=== PATIENT | female | born 1935 ===

== ENCOUNTER 2017-11-27 11:47 | Inpatient (IN) | payer MEDICARE ==
[2017-11-27 11:49] VITALS: BMI 29.2
[2017-11-27] MEDS ORDERED: Morphine 4 mg/ml ISec IVP STA (12:49)
[2017-11-27] MEDS ORDERED: Sodium Chloride 0.9% 1,000 ML IV STA (12:49)
[2017-11-27] MEDS ORDERED: Iohexol 240 (50 ml) ONE (13:02)
--- NOTE | 2017-11-27 13:39 | ED PDOC ---
Arrival/HPI - General Chief Complaint: Back Pain Time Seen by Provider: 11/27/17 12:16 Historian: Patient - History of Present Illness Narrative History of Present Illness (Text): 11/27/17 13:43 Corinne Negro is an 82 year old female, whose past medical history includes CAD with 1 cardiac stent and hypertension, who presents to the Emergency department complaining of aching lower back pain for past 2 days, which radiates upward all the way to neck, progressively worse since yesterday morning. Patient notes she was cleaning her house 2 days ago. Patient admits to constipation for 2 days and notes she has not passed gas in 2 days. Patient was able to ambulate when coming to Emergency department today. Patient denies taking any over the counter medicine. Patient notes she took prescribed Gabapentin, with no significant relief. Patient denies any fever, chills, falling, numbness/tingling in any other extremities, chest pain, shortness of breath, nausea, vomiting, diarrhea, urinary symptoms, blurred vision, headache, dizziness, or any other complaints. PMD: Dr. Eleuterio العلي Time/Duration: > week (started 2 days ago) Symptom Onset: Gradual Symptom Course: Unchanged Quality: Aching Activities at Onset: Other (was cleaning house 2 days ago) Context: Home Past Medical History - Provider Review Nursing Documentation Reviewed: Yes - Infectious Disease Hx of Infectious Diseases: None - Tetanus Immunization Tetanus Immunization: Unknown - Cardiac Hx Hypertension: Yes Other/Comment: coronary artery stent - Pulmonary Hx Respiratory Disorders: No - Neurological Other/Comment: [place] [employer] [place] 02[place]26[place]14 - HEENT Hx HEENT Disorder: No - Renal Hx Renal Disorder: No - Endocrine/Metabolic Hx Endocrine Disorders: No - Hematological/Oncological Hx Blood Disorders: No - Integumentary Other/Comment: cyst removed on left breast - Musculoskeletal/Rheumatological Hx Back Pain: Yes (02/09/13 ADM FOR R/O PNEUMONIA) Hx Falls: Yes - Gastrointestinal Hx Gall Bladder Disease: Yes (removed gall bladder) - Genitourinary/Gynecological Hx Genitourinary Disorders: No - Psychiatric Hx Depression: Yes Hx Emotional Abuse: No Hx Physical Abuse: No Hx Substance Use: No - Surgical History Hx Coronary Stent: Yes Hx Open Heart Surgery: Yes (@ [facility] 3 YRS AGO) - Anesthesia Hx Anesthesia: Yes Hx Anesthesia Reactions: No - Suicidal Assessment Feels Threatened In Home Enviroment: No Family/Social History - Physician Review Nursing Documentation Reviewed: Yes Family/Social History: Unknown Family HX Smoking Status: Never Smoked Hx Alcohol Use: No Hx Substance Use: No Allergies/Home Meds Allergies/Adverse Reactions: Allergies iv contrast Allergy (Severe, Uncoded 03/01/14 14:34) RASH Home Medications: Home Meds Medication Instructions Recorded Confirmed Aspirin [Ecotrin] 1 tab PO DAILY 11/27/17 11/27/17 Furosemide [Lasix] 1 tab PO DAILY 11/27/17 11/27/17 Gabapentin [Neurontin] 1 tab PO TID 11/27/17 11/27/17 Metoprolol Tartrate [Lopressor] 1 tab PO BID 11/27/17 11/27/17 amLODIPine [Norvasc] 1 tab PO DAILY 11/27/17 11/27/17 Review of Systems - Physician Review All systems were reviewed & negative as marked: Yes - Review of Systems Constitutional: Normal. absent: Fevers Eyes: Normal. absent: Vision Changes ENT: Normal Respiratory: Normal. absent: SOB, Cough Cardiovascular: Normal. absent: Chest Pain Gastrointestinal: Constipation (for past 2 days), Other (notes she has not passed gas in past 2 days). absent: Normal, Abdominal Pain, Diarrhea, Nausea, Vomiting Genitourinary Female: Normal Musculoskeletal: Back Pain (lower back pain radiating upward, all the way to neck), Neck Pain (lower back pain radiates to neck). absent: Normal Skin: Normal. absent: Rash, Pruritis, Skin Lesions, Laceration Neurological: Normal. absent: Headache, Dizziness, Gait Changes, Speech Changes Endocrine: Normal. absent: Diaphoresis Hemo/Lymphatic: Normal Psychiatric: Normal Physical Exam Vital Signs Reviewed: Yes Vital Signs Temp Pulse Resp BP Pulse Ox 11/27/17 16:23 98.3 F 88 20 140/90 95 11/27/17 14:28 98.4 F 79 18 130/84 95 11/27/17 11:54 98.5 F 86 18 121/82 96 Temperature: Afebrile Blood Pressure: Normal Pulse: Regular Respiratory Rate: Normal Appearance: Positive for: Well-Appearing, Non-Toxic, Comfortable Pain Distress: None Mental Status: Positive for: Alert and Oriented X 3 - Systems Exam Head: Present: Atraumatic, Normocephalic Pupils: Present: PERRL Extroacular Muscles: Present: EOMI Conjunctiva: Present: Normal Mouth: Present: Moist Mucous Membranes Neck: Present: Normal Range of Motion Respiratory/Chest: Present: Clear to Auscultation, Good Air Exchange. No: Respiratory Distress, Accessory Muscle Use Cardiovascular: Present: Regular Rate and Rhythm, Normal S1, S2. No: Murmurs Abdomen: No: Tenderness, Distention, Peritoneal Signs Back: Present: Normal Inspection. No: CVA Tenderness Upper Extremity: Present: Normal Inspection. No: Cyanosis, Edema Lower Extremity: Present: Normal Inspection. No: Edema Neurological: Present: GCS=15, CN II-XII Intact, Speech Normal Skin: Present: Warm, Dry, Normal Color. No: Rashes Psychiatric: Present: Alert, Oriented x 3, Normal Insight, Normal Concentration Medical Decision Making ED Course and Treatment: 11/27/17 12:25 Impression: Corinne Negro is an 82 year old female who presents to the Emergency department for lower back pain for past 2 days. Plan: -- Labs -- CT of A/P -- Colace -- Morphine -- IV fluids -- Zofran -- Urine culture -- Urinalysis -- Reassess and disposition Progress Notes: 10/27/2017 16:20 Abd/Pelvis CT IMPRESSION: Left adrenal mass unchanged. No acute intra-abdominal findings. Dictator: Davon Hernandez MD 11/27/17 16:[address] العلي, who agrees to have patient admitted for observation. - Lab Interpretations Lab Results: 11/27/17 13:00 11/27/17 13:00 Lab Results 11/27/17 14:50: Urine Color Yellow, Urine Appearance Clear, Urine pH 6.0, Ur Specific [place] 1.025, Urine Protein Trace H, Urine Glucose (UA) Negative, Urine Ketones Negative, Urine Blood Negative, Urine Nitrate Negative, Urine Bilirubin Negative, Urine Urobilinogen 0.2, Ur Leukocyte Esterase Small H, Urine RBC 0 - 2, Urine WBC 10 - 15, Ur Epithelial Cells 4 - 5, Urine Bacteria Mod 11/27/17 13:00: Sodium 144, Potassium 4.2, Chloride 102, Carbon Dioxide 31, Anion Gap 16, BUN 20, Creatinine 1.1, Est GFR ( Amer) 58, Est GFR (Non- Af Amer) 48, Random Glucose 102, Calcium 9.7, Total Bilirubin 0.7, AST 39 H, ALT 25, Alkaline Phosphatase 75, Total Protein 8.0, Albumin 4.6, Globulin 3.4, Albumin/Globulin Ratio 1.3, Lipase 275 11/27/17 13:00: PT 11.5, INR 1.01 11/27/17 13:00: WBC 10.7 D, RBC 4.38, Hgb 13.0, Hct 39.2, MCV 89.5, MCH 29.7, MCHC 33.2, RDW 14.4, Plt Count 238, MPV 9.5, Gran % 87.0 H, Lymph % (Auto) 4.1 L , [place] % (Auto) 7.6 H, Eos % (Auto) 1.0 L, Baso % (Auto) 0.3, Gran # 9.33 H, Lymph # (Auto) 0.4 L, [place] # (Auto) 0.8 H, Eos # (Auto) 0.1, Baso # (Auto) 0.03 , Neutrophils % (Manual) 87 H, Lymphocytes % (Manual) 3 L, Monocytes % (Manual) 9 H, Eosinophils % (Manual) 1, Platelet Evaluation Normal - RAD Interpretation Radiology Orders: 11/27/17 12:47 ABD PELVIS PO & IV CONTRAST [CT] Stat - Medication Orders Current Medication Orders: Ceftriaxone Sodium (Rocephin 2 Gm Ivpb) 2 gm in 100 mls @ 100 mls/hr IVPB STAT STA PRN Reason: Protocol Stop: 11/27/17 17:24 Last Admin: 11/27/17 16:46 Dose: 100 mls/hr eMAR Start Stop Document 11/27/17 16:46 LA (Rec: 11/27/17 16:47 LA [id number]) Intravenous Solution Start Date 11/27/17 Start Time 16:46 End Date 11/27/17 End time 17:46 Total Infusion Time 60 Discontinued Medications Docusate Sodium (Colace) 100 mg PO STAT STA Stop: 11/27/17 12:50 Last Admin: 11/27/17 13:09 Dose: 100 mg Last Bowel Movement Document 11/27/17 13:09 LA (Rec: 11/27/17 13:10 LA [id number]) Last Bowel Movement Last Bowel Movement 11/25/17 Sodium Chloride (Sodium Chloride 0.9%) 1,000 mls @ 999 mls/hr IV .Q1H1M STA Stop: 11/27/17 13:49 Last Admin: 11/27/17 13:25 Dose: 999 mls/hr eMAR Start Stop Document 11/27/17 13:25 LA (Rec: 11/27/17 13:25 LA [id number]) Intravenous Solution Start Date 11/27/17 Start Time 13:25 End Date 11/27/17 End time 14:26 Total Infusion Time 61 Morphine Sulfate (Morphine) 4 mg IVP STAT STA Stop: 11/27/17 12:50 Last Admin: 11/27/17 13:08 Dose: 4 mg MAR Pain Assessment Document 11/27/17 13:08 LA (Rec: 11/27/17 13:08 LA [id number]) Pain Reassessment Is this a pain reassessment? No Sleep Is patient sleeping during reassessment? No Presence of Pain Presence of Pain Yes Pain Scale Used Pain Scale Used Numeric Location Upper or Lower Lower Pain Location Body Site Back Description Description Constant Intensity of Pain at present 10 IVP Administration Document 11/27/17 13:08 LA (Rec: 11/27/17 13:08 LA [id number]) Charges for Administration # of IVP Administrations 1 Re-Assess: MAR Pain Assessment Document 11/27/17 14:08 LA (Rec: 11/27/17 14:35 LA [id number]) Pain Reassessment Is this a pain reassessment? Yes Sleep Is patient sleeping during reassessment? No Presence of Pain Presence of Pain Yes Pain Scale Used Pain Scale Used Numeric Location Upper or Lower Lower Pain Location Body Site Back Description Description Intermittent Intensity of Pain at present 7 Pain Behavior Guarding Ondansetron HCl (Zofran Inj) 4 mg IVP STAT STA Stop: 11/27/17 12:50 Last Admin: 11/27/17 13:09 Dose: 4 mg IVP Administration Document 11/27/17 13:09 LA (Rec: 11/27/17 13:09 LA [id number]) Charges for Administration # of IVP Administrations 1 - Scribe Statement The provider has reviewed the documentation as recorded by the Scriblebron Mayorga All medical record entries made by the Scribe were at my direction and personally dictated by me. I have reviewed the chart and agree that the record accurately reflects my personal performance of the history, physical exam, medical decision making, and the department course for this patient. I have also personally directed, reviewed, and agree with the discharge instructions and disposition. Disposition/Present on Arrival - Present on Arrival Any Indicators Present on Arrival: No History of DVT/PE: No History of Uncontrolled Diabetes: No Urinary Catheter: No History of Decub. Ulcer: No History Surgical Site Infection Following: None - Disposition Have Diagnosis and Disposition been Completed?: Yes Diagnosis: Back pain, Pyelonephritis Disposition: HOSPITALIZED Disposition Time: 16:53 Patient Plan: Observation (Med/Surg), Other Patient Problems: Current Active Problems Problem Status Onset Back pain Acute Pyelonephritis Acute Condition: GOOD Referrals: Honey العلي MD [Primary Care Provider] - Follow up with primary Forms: [employer] (Dutch)
[2017-11-27 13:42] LABS: BASO # 0.03 K/mm3 (0.0-2.0); BASO % 0.3 % (0.0-3.0); EOS # 0.1 (0.0-0.7); GRAN # 9.33 (1.4-6.5); LYMPH # 0.4 (1.2-3.4); LYMPH % 4.1 % (22.0-35.0); MEAN CELL VOLUME 89.5 fl (80.0-105.0); MEAN CORPUSCULAR HEMOGLOBIN 29.7 pg (25.0-35.0); MEAN CORPUSCULAR HGB CONC 33.2 g/dl (31.0-37.0); MEAN PLATELET VOLUME 9.5 fl (7.0-11.0); MONO # 0.8 (0.1-0.6); MONO % 7.6 % (1.0-6.0); PLATELET COUNT 238 10^3/uL (120.0-450.0); RBC 4.38 10^6/uL (3.5-6.1); RED CELL DISTRIBUTION WIDTH 14.4 % (11.5-14.5); WHITE BLOOD COUNT 10.7 10^3/ul (4.5-11.0)
[2017-11-27 13:47] LABS: INR 1.01; PROTHROMBIN TIME 11.5 SECONDS (9.4-12.5)
[2017-11-27 14:02] LABS: EOSINOPHIL 1 % (0.0-3.0); LYMPHOCYTE 3 % (22.0-35.0); MONOCYTE 9 % (1.0-6.0); NEUTROPHIL 87 % (50.0-70.0); PLATELET ESTIMATE NORMAL (NORMAL)
[2017-11-27 14:06] LABS: ALB/GLOB RATIO 1.3 (1.1-1.8); ALBUMIN 4.6 g/dL (3.0-4.8); CALCIUM 9.7 mg/dL (8.4-10.5)
[2017-11-27] MEDS ORDERED: Iohexol 350 MG/100 ML VIAL ONE (14:29)
[2017-11-27 15:03] LABS: URINE BILIRUBIN NEGATIVE (NEGATIVE); URINE BLOOD NEGATIVE (NEGATIVE); URINE GLUCOSE (UA) NEGATIVE (NEGATIVE); URINE LEUKOCYTE ESTERASE SMALL Leu/uL (NEGATIVE); URINE PROTEIN TRACE mg/dL (<30 mg/dL); URINE UROBILINOGEN 0.2 E.U./dL (<1 E.U./dL)
[2017-11-27 15:10] LABS: URINE APPEARANCE CLEAR (CLEAR); URINE COLOR YELLOW (YELLOW)
[2017-11-27 15:11] LABS: URINE BACTERIA MOD (NEG); URINE RBC 0 - 2 /hpf (0-2)
--- NOTE | 2017-11-27 16:22 | CT ---
Date of service: 11/27/2017 PROCEDURE: CT Abdomen and Pelvis with contrast HISTORY: Possible Bowel Obstruction COMPARISON: 07/14/2016 TECHNIQUE: Contrast dose: 100 cc of Omni 350 Radiation dose: Total exam DLP = 914 mGy-cm. This CT exam was performed using one or more of the following dose reduction techniques: Automated exposure control, adjustment of the mA and/or kV according to patient size, and/or use of iterative reconstruction technique. FINDINGS: LOWER THORAX: Unremarkable. LIVER: Unremarkable. No gross lesion or ductal dilatation. GALLBLADDER AND BILE DUCTS: The common duct is dilated measuring 15 mm. There is no obstructing mass or stone visualized. The finding is unchanged. Previous cholecystectomy PANCREAS: Unremarkable. No gross lesion or ductal dilatation. SPLEEN: Unremarkable. ADRENALS: There is a left adrenal mass measuring 32 x 35 mm. This is unchanged KIDNEYS AND URETERS: Unremarkable. No hydronephrosis. No solid mass. VASCULATURE: Unremarkable. No aortic aneurysm. BOWEL: Unremarkable. No obstruction. No gross mural thickening. APPENDIX: Normal appendix. PERITONEUM: Unremarkable. No free fluid. No free air. LYMPH NODES: Unremarkable. No enlarged lymph nodes. BLADDER: Unremarkable. REPRODUCTIVE: Unremarkable. BONES: No acute fracture. OTHER FINDINGS: None. IMPRESSION: Left adrenal mass unchanged. No acute intra-abdominal findings
[2017-11-27] MEDS ORDERED: cefTRIAXone 2 GM IN NS 2 GM/100 ML BAG IVPB STA (16:25)
[2017-11-27] MEDS ORDERED: Pneumococcal 23-Valent Vaccine IM ONE (21:16)
--- NOTE | 2017-11-28 06:57 | HP ---
Copied To: Honey العلي MD Attending MD: Honey العلي MD. DATE OF EXAM: 11/27/2017 CHIEF COMPLAINT: Back pain. HISTORY OF PRESENT ILLNESS: Ms. Corinne Negro is an [id number] female with past medical history of coronary artery disease with cardiac stenting, hypertension, repeated UTI came to the emergency room complaining of back pain for the past 2 days which radiates upward all the way to the neck, progressively worse since yesterday morning. Patient noticed she was cleaning her house 2 days ago. Patient admits constipation for 2 days and noticed that she has not passed gas in 2 days. The patient was able to ambulate when coming to the Emergency Department. Patient denies taking any [id number] medications. Patient noticed she took prescribed gabapentin with no significant relief. No fever, no chills. No history of fall, numbness, tingling sensation, chest pain, shortness of breath. No nausea or vomiting or diarrhea. No headache, no dizziness. PAST MEDICAL HISTORY: Hypertension, history of syncopal attack, before cardiac surgery, cyst removed from the left breast, history of pneumonia, history of cholecystectomy, depression, coronary stents, open heart surgery in [facility] 3 years ago for valvular lesion. FAMILY HISTORY: Father and mother, noncontributory. HABITS: Never smoked. No drugs, no ethanol. ALLERGIES: PATIENT IS ALLERGIC WITH IV CONTRAST. HOME MEDICATIONS: Ecotrin, Lasix, Neurontin, Lopressor, Lovenox. REVIEW OF SYSTEMS: Patient was seen and examined at the bedside in the emergency room. Son was sitting on the bedside also. No fever, no chills, no vision changes. No shortness of breath, cough or chest pain. No hematuria, hematochezia. Patient has history of constipation. Has not passed the gas in past 2 days. Back pain of lower back radiating up all the way to the neck. No skin lesions, laceration, or dizziness. PHYSICAL EXAMINATION: VITAL SIGNS: Temperature 98.3, pulse 88, respiratory rate 20, blood pressure 140/90, pulse oxymetry 95. HEENT: Head normocephalic, atraumatic. Eyes PERRLA. Extraocular muscles intact. Conjunctivae clear. Nose patent. Mucous membranes moist. NECK: Supple. No carotid bruits or thyromegaly. CHEST: Bilateral symmetrical. HEART: S1, S2 positive. LUNGS: Clear to auscultation. ABDOMEN: Soft. Bowel sounds positive. No organomegaly. EXTREMITIES: No edema, no cyanosis. NEUROLOGIC: Patient is awake and alert. Moving all 4 extremities. No focal deficits. LABORATORY DATA: White blood cell 10.7, hemoglobin 13.0, hematocrit 39.2, platelet 238. Sodium 145, potassium 4.2, BUN 20, creatinine 1.1, glucose 102. ASSESSMENT AND PLAN: Ms. Corinne Negro is an 82-year-old female with back pain, pyelonephritis, history of coronary artery disease with cardiac stents, open heart surgery in [place], hypertension. CAT scan of abdomen and pelvis done showed left adrenal mass unchanged, no acute intraabdominal findings. We admitted the patient. Called ID consult to rule out sepsis. Patient has history of constipation, docusate given in the emergency room, started on aspirin, Lasix, metoprolol. Morphine given in the emergency room. Amlodipine, Pepcid, ceftriaxone given. Gastrointestinal and deep venous thrombosis prophylaxis given. Urinalysis shows trace proteinuria and urinary tract infection. Culture and sensitivity done. Results are pending. Length of time discussion done with patient's son. He is on the bedside. Gastrointestinal prophylaxis, deep venous thrombosis prophylaxis. Repeat labs. Will follow up. Honey العلي MD DWAYNE
[2017-11-28 07:05] LABS: MEAN CELL VOLUME 89.1 fl (80.0-105.0); MEAN CORPUSCULAR HEMOGLOBIN 29.2 pg (25.0-35.0); MEAN CORPUSCULAR HGB CONC 32.8 g/dl (31.0-37.0); MEAN PLATELET VOLUME 9.2 fl (7.0-11.0); RBC 4.11 10^6/uL (3.5-6.1); RED CELL DISTRIBUTION WIDTH 14.6 % (11.5-14.5); WHITE BLOOD COUNT 8.8 10^3/ul (4.5-11.0)
[2017-11-28 07:12] LABS: BLOOD UREA NITROGEN 16 mg/dL (7-21); CALCIUM 8.7 mg/dL (8.4-10.5); GFR AFRICAN-AMERICAN > 60; GFR NON-AFRICAN AMERICAN 53; HDL CHOLESTEROL 44 mg/dL (29-60)
[2017-11-28 07:13] LABS: IRON 91 ug/dL (45-180)
[2017-11-28 07:22] LABS: % IRON SATURATION 26 % (20-55); TOTAL IRON BINDING CAPACITY 352 ug/dL (265-497)
[2017-11-28 07:23] LABS: LDL CHOLESTEROL 76 mg/dL (0-129)
[2017-11-28] MEDS: cefTRIAXone 1 gm 1 GM/100 ML BAG IVPB SCH (09:54)
[2017-11-28 13:04] LABS: FOLATE 6.4 ng/mL
--- NOTE | 2017-11-28 13:05 | CP.PCM.CON ---
<Nelson Garcia - Last Filed: 11/28/17 13:30> History of Present Illness - History of Present Illness History of Present Illness: PGY6 GI Fellow Consult Note Patient is an 82yo female with PMHx significant for CAD s/P PCI, HTN who presented to the hospital with severe intractable back pain for the last two days. Symptoms began suddenly upon waking two days ago. She denies any recent heavy lifting but had been cleaning her house prior to onset. Our service was consulted for abdominal pain. Patient states she has been constipated for the last 2-3 days but otherwise denies any specific GI complaints. Currently denies any dysphagia, odynophagia, abdominal pain, nausea, vomiting, weight loss, change in bowel habits, rectal bleeding. 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 The patient was instructed to follow up for repeat EGD but did not do so. 12 system ROS performed and negative except where stated PMHx: See HPI PSHx: Cholecystectomy, PCI FHx: Discussed with patient and she denies any significant family history Social: Denies tobacco, EtOH or illicit drug use Endo: EGD/EUS - June 2016 as described above; Colonoscopy in 2013 with tubular adenoma/hyperplastic polyps per path report (no endo report available in EMR) Past Patient History - Infectious Disease Hx of Infectious Diseases: None - Tetanus Immunizations Tetanus Immunization: Unknown - Past Social History Smoking Status: Never Smoked - CARDIAC Hx Cardiac Disorders: Yes Hx Hypertension: Yes Other/Comment: coronary artery stent X1 - PULMONARY Hx Respiratory Disorders: No - NEUROLOGICAL Hx Neurological Disorder: Yes Other/Comment: [facility]ed [place] [employer] [place] 02[place]26[place]14 - HEENT Hx HEENT Problems: Yes (WEARS RX GLASSES) - RENAL Hx Chronic Kidney Disease: No - ENDOCRINE/METABOLIC Hx Endocrine Disorders: No - HEMATOLOGICAL/ONCOLOGICAL Hx Blood Disorders: No - INTEGUMENTARY Hx Dermatological Problems: Yes Other/Comment: cyst removed on left breast - MUSCULOSKELETAL/RHEUMATOLOGICAL Hx Musculoskeletal Disorders: Yes Hx Back Pain: Yes (02/09/13 ADM FOR R/O PNEUMONIA) Hx Falls: Yes - GASTROINTESTINAL Hx Gastrointestinal Disorders: Yes (PANCREATITIS) Hx Gall Bladder Disease: Yes (CHOLECYSTECTOMY) Hx Pancreatitis: Yes - GENITOURINARY/GYNECOLOGICAL Hx Genitourinary Disorders: Yes Hx Urinary Tract Infection: Yes - PSYCHIATRIC Hx Psychophysiologic Disorder: Yes Hx Depression: Yes Hx Emotional Abuse: No Hx Physical Abuse: No Hx Substance Use: No - SURGICAL HISTORY Hx Surgeries: Yes (HEART STENT X 1) Hx Coronary Stent: Yes Hx Open Heart Surgery: Yes (@ [facility] 3 YRS AGO) - ANESTHESIA Hx Anesthesia: Yes Hx Anesthesia Reactions: No Meds Allergies/Adverse Reactions: Allergies Allergy/AdvReac Type Severity Reaction Status Date / Time iv contrast Allergy Severe RASH Uncoded 11/27/17 20:01 - Medications Medications: Current Medications Acetaminophen (Tylenol 325mg Tab) 650 mg PO Q6H PRN PRN Reason: Pain, Mild (1-3) Last Admin: 11/28/17 07:50 Dose: 650 mg Amlodipine Besylate (Norvasc) 10 mg PO DAILY [facility] Last Admin: 11/28/17 09:53 Dose: 10 mg Aspirin (Ecotrin) 81 mg PO DAILY [facility] Last Admin: 11/28/17 09:52 Dose: 81 mg Famotidine (Pepcid) 20 mg PO DAILY [facility] Last Admin: 11/28/17 09:54 Dose: 20 mg Furosemide (Lasix) 20 mg PO DAILY [facility] Last Admin: 11/28/17 09:52 Dose: 20 mg Gabapentin (Neurontin) 300 mg PO TID [facility] PRN Reason: Protocol Last Admin: 11/28/17 09:53 Dose: 300 mg Ceftriaxone Sodium (Rocephin 1 Gram Ivpb) 1 gm in 100 mls @ 100 mls/hr IVPB DAILY [facility] PRN Reason: Protocol Last Admin: 11/28/17 09:54 Dose: 100 mls/hr Metoprolol Tartrate (Lopressor) 25 mg PO BID [facility] Last Admin: 11/28/17 09:53 Dose: 25 mg Physical Exam - Constitutional Appears: Non-toxic, No Acute Distress - Eye Exam Eye Exam: EOMI, PERRL - ENT Exam ENT Exam: Mucous Membranes Moist - Respiratory Exam Respiratory Exam: Clear to Auscultation Bilateral. absent: Rales, Rhonchi, Wheezes - Cardiovascular Exam Cardiovascular Exam: RRR, +S1, +S2 - GI/Abdominal Exam GI & Abdominal Exam: Normal Bowel Sounds, Organomegaly, Soft. absent: Distended , Firm, Guarding, Rigid, Tenderness - Extremities Exam Extremities exam: Positive for: normal inspection. Negative for: pedal edema - Neurological Exam Neurological exam: Alert, Oriented x3 - Psychiatric Exam Psychiatric exam: Normal Affect, Normal Mood - Skin Skin Exam: Dry, Warm Results - Vital Signs Recent Vital Signs: Last Vital Signs Temp 98.0 F 11/28/17 06:00 Pulse 68 11/28/17 09:53 Resp 20 11/28/17 06:00 BP 116/73 11/28/17 09:53 Pulse Ox 95 11/28/17 06:00 - Labs Result Diagrams: 11/28/17 06:30 11/28/17 06:30 Labs: Laboratory Results - last 24 hr 11/28/17 11/28/17 11/28/17 06:30 06:30 06:30 WBC 8.8 RBC 4.11 Hgb 12.0 Hct 36.6 MCV 89.1 MCH 29.2 MCHC 32.8 RDW 14.6 H Plt Count 233 MPV 9.2 ESR Sodium 143 Potassium 4.1 Chloride 103 Carbon Dioxide 32 Anion Gap 13 BUN 16 Creatinine 1.0 Est GFR ( Amer) > 60 Est GFR (Non-Af Amer) 53 Random Glucose 93 Calcium 8.7 Iron 91 TIBC 352 % Saturation 26 C-Reactive Protein Triglycerides 121 Cholesterol 153 LDL Cholesterol Direct 76 HDL Cholesterol 44 TSH 3rd Generation 11/28/17 11/28/17 11/28/17 06:30 07:00 07:00 WBC RBC Hgb Hct MCV MCH MCHC RDW Plt Count MPV ESR 67 H Sodium Potassium Chloride Carbon Dioxide Anion Gap BUN Creatinine Est GFR ( Amer) Est GFR (Non-Af Amer) Random Glucose Calcium Iron TIBC % Saturation C-Reactive Protein 32.30 H Triglycerides Cholesterol LDL Cholesterol Direct HDL Cholesterol TSH 3rd Generation 0.77 Assessment & Plan - Assessment and Plan (Free Text) Assessment: Patient is an 82yo female with PMHx significant for CAD s/P PCI, HTN who presented to the hospital with severe intractable back pain for the last two days -Acute back pain -H/O 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 -PUD -Dilated CBD s/p cholecystectomy and prior EUS performed Plan: -EUS report reviewed along with images; no further work up required presently -Given h/o PUD and squamous papilloma, patient would benefit from repeat EGD, timing to be determined -Miralax 17g PO QD-BID PRN for constipation -Encouraged to augment fiber/water in diet -Given prior history of colon polyps, could consider outpatient surveillance colonoscopy given relatively few co-morbid conditions - Date & Time Date: 11/28/17 Time: 07:30 <Rush Loomis V - Last Filed: 11/28/17 23:53> Meds - Medications Medications: Current Medications Acetaminophen (Tylenol 325mg Tab) 650 mg PO Q6H PRN PRN Reason: Pain, Mild (1-3) Last Admin: 11/28/17 07:50 Dose: 650 mg Amlodipine Besylate (Norvasc) 10 mg PO DAILY [facility] Last Admin: 11/28/17 09:53 Dose: 10 mg Aspirin (Ecotrin) 81 mg PO DAILY [facility] Last Admin: 11/28/17 09:52 Dose: 81 mg Famotidine (Pepcid) 20 mg PO DAILY [facility] Last Admin: 11/28/17 09:54 Dose: 20 mg Furosemide (Lasix) 20 mg PO DAILY [facility] Last Admin: 11/28/17 09:52 Dose: 20 mg Gabapentin (Neurontin) 300 mg PO TID [facility] PRN Reason: Protocol Last Admin: 11/28/17 17:10 Dose: 300 mg Ceftriaxone Sodium (Rocephin 1 Gram Ivpb) 1 gm in 100 mls @ 100 mls/hr IVPB DAILY [facility] PRN Reason: Protocol Last Admin: 11/28/17 09:54 Dose: 100 mls/hr Metoprolol Tartrate (Lopressor) 25 mg PO BID [facility] Last Admin: 11/28/17 17:09 Dose: 25 mg Results - Vital Signs Recent Vital Signs: Last Vital Signs Temp 97.9 F 11/28/17 16:22 Pulse 69 11/28/17 17:09 Resp 18 11/28/17 16:22 BP 108/70 11/28/17 17:09 Pulse Ox 94 L 11/28/17 16:22 - Labs Result Diagrams: 11/28/17 06:30 11/28/17 06:30 Labs: Laboratory Results - last 24 hr 11/28/17 11/28/17 11/28/17 06:30 06:30 06:30 WBC 8.8 RBC 4.11 Hgb 12.0 Hct 36.6 MCV 89.1 MCH 29.2 MCHC 32.8 RDW 14.6 H Plt Count 233 MPV 9.2 ESR Sodium 143 Potassium 4.1 Chloride 103 Carbon Dioxide 32 Anion Gap 13 BUN 16 Creatinine 1.0 Est GFR ( Amer) > 60 Est GFR (Non-Af Amer) 53 Random Glucose 93 Calcium 8.7 Iron 91 TIBC 352 % Saturation 26 C-Reactive Protein Triglycerides 121 Cholesterol 153 LDL Cholesterol Direct 76 HDL Cholesterol 44 Vitamin B12 397 Folate 6.4 TSH 3rd Generation 11/28/17 11/28/17 11/28/17 06:30 07:00 07:00 WBC RBC Hgb Hct MCV MCH MCHC RDW Plt Count MPV ESR 67 H Sodium Potassium Chloride Carbon Dioxide Anion Gap BUN Creatinine Est GFR ( Amer) Est GFR (Non-Af Amer) Random Glucose Calcium Iron TIBC % Saturation C-Reactive Protein 32.30 H Triglycerides Cholesterol LDL Cholesterol Direct HDL Cholesterol Vitamin B12 Folate TSH 3rd Generation 0.77 Attending/Attestation - Attestation I have personally seen and examined this patient.: Yes I have fully participated in the care of the patient.: Yes I have reviewed all pertinent clinical information: Yes Notes (Text): Associated This is an addendum to GI consult report dictated by the GI Fellow.The patient was seen and examined earlier. Medical records, lab studies , imagings were reviewed. Last 24 hours events reviewed. Agreed with the above treatment plan as outlined in GI Fellow 's notes with the addition of the following Patient complains of only backpain No complaints of abdominal pain now History of dilated CBD Left adrenal mass Esophageal papilloma Previous EUS evaluation . Patient also has gastric ulcers Continue PPI Would benefit from repeat endoscopy evaluation to document healing of the gasic ulcers and also to evaluate the esophageal polyp/papilloma 11/28/17 23:50
--- NOTE | 2017-11-28 17:41 | CON ---
Copied To: Ramsey Mckeon MD Attending MD: Ramsey Mckeon MD DATE: 11/28/2017 LOCATION: The patient is in [facility], bed 1. CHIEF COMPLAINT: Right-sided flank pain times several days. HISTORY OF PRESENT ILLNESS: This is an 82-year-old female with a history of hypertension, history of rectal bleeding in 2013, history of s colonoscopy, which showed a biopsy with a tubular adenoma and H. pylori associated chronic active gastritis. The patient had upper endoscopy and also had a mammogram in 2012, which was negative. She had a history of coronary artery disease, pancreatitis and depression, who is admitted now with right-sided flank pain. The patient denies any dysuria or frequency. No fevers. No chills. No chest pain or shortness of breath. No cough. No abdominal pain. No headaches or blurred vision. REVIEW OF SYSTEMS: Reveals a 12-point review of systems is performed. There has been no bright red blood per rectum. No melena, diarrhea. There is constipation. No dysuria or frequency. No hematuria. No headaches and no neck pain, no sore throat. Just a right flank pain. PAST MEDICAL HISTORY: Significant for hypertension, tubular adenoma, rectal bleeding in 2013, H. pylori associated chronic active gastritis, coronary artery disease, pancreatitis and depression. PAST SURGICAL HISTORY: Significant for upper endoscopy and colonoscopy with biopsy, mammogram and cardiac cath with stent placement, cholecystectomy and a coronary artery bypass graft. ALLERGIES: THE PATIENT IS ALLERGIC TO IV CONTRAST. MEDICATIONS AT HOME: Include the patient to be on Neurontin, aspirin, amlodipine, metoprolol and Lasix. PHYSICAL EXAMINATION: GENERAL: She is in bed, no acute distress. She is answering questions appropriately. VITAL SIGNS: Temperature of 98, blood pressure is 140/90, respiratory rate of 20, heart rate of 88. Examination of the oxygen is 95% saturating on room air. BMI is 29. HEENT: Examination of HEENT is unremarkable. NECK: Supple. LUNGS: Have decreased breath sounds. HEART: Normal S1, S2. ABDOMEN: Soft, nontender. LABORATORY DATA: Laboratory examination reveals the white count is 8.8, hemoglobin of 12, platelets of 233. Chemistries reveals a BUN of 16, creatinine of 1, AST is 39. The urinalysis with 10-15 wbc's, moderate bacteria. Review of the cultures and these have been from 2012, negative cultures. The patient had a CAT scan of the abdomen, which was read as negative. Dr. العلي's history and physical examination reviewed. ASSESSMENT AND PLAN: An 82-year-old female with history of hypertension, history of rectal bleed, has colonoscopy, a tubular adenoma by pathology, an upper endoscopy and a Helicobacter pylori associated chronic active gastritis, coronary artery disease, pancreatitis and depression. Presenting now with a right flank pain. No fevers, no chills. She is having constipation with negative CAT scan. #1 is right pyelonephritis. We will check on the blood cultures, urine cultures. Treat the patient empirically with ceftriaxone. MRI of the spine is also ordered. We will check on the results and we will make further recommendations. We will order a sedimentation rate and C-reactive protein. Ramsey Mckeon MD
--- NOTE | 2017-11-29 02:40 | PN ---
Copied To: Honey العلي MD Attending MD: Honey العلي MD DATE: 11/28/2017 SUBJECTIVE: The patient is 82 years old female. The patient was seen and examined on the bedside. Sister was seen on the bedside also. Still complaining about pain, but it is getting better. No nausea, vomiting or diarrhea. No melena, no hematuria, no fever, no chills. No constipation. No dysuria or frequency. No headache, no neck pain. Had just right flank pain and back pain. PHYSICAL EXAMINATION VITAL SIGNS: Temperature 98.6, blood pressure 140/90, respiratory rate 18, pulse oximetry 88, oxygen saturation 95%. HEENT: Head normocephalic, atraumatic. Eyes PERRLA. Extraocular muscles are intact. Conjunctivae clear. Nose patent. Mucous membranes are moist. NECK: Supple. No carotid bruit. No JVD or thyromegaly. CHEST: Bilaterally symmetrical. HEART: S1 and S2 positive. LUNGS: Clear to auscultation. ABDOMEN: Soft. Bowel sounds present. No organomegaly. EXTREMITIES: No edema. No cyanosis. NEUROLOGIC: Patient is awake and alert. Moving all 4 extremities. No focal deficit. MEDICATIONS: Ecotrin, Lasix, Lopressor, Neurontin, Pepcid, Tylenol, Rocephin. LABORATORY DATA: White blood cell 8.8, hemoglobin 12, hematocrit 36.6, platelets 233. Sodium 143, potassium 4.1, BUN 15, creatinine 1, calcium 8.7. C-reactive protein 32.3. ASSESSMENT AND PLAN: Ms. Corinne Negro is 82-year-old female with history of hypertension, history of rectal bleeding, has colonoscopy, a tubular adenoma by pathology, an upper endoscopy and Helicobacter pylori-associated chronic active gastritis, coronary artery disease, history of pancreatitis and depression, daily right flank pain. No fever, no chills. She is having constipation with negative CAT scan, right pyelonephritis. Blood culture and urine cultures are pending. The patient is on ceftriaxone. MRI spine is ordered. ESR and C-reactive protein ordered by Dr. Mckeon. History of open heart surgery in [place]. Right now, continue present treatment. Gastrointestinal and deep venous thrombosis prophylaxis. We will follow up. Honey العلي MD
--- NOTE | 2017-11-29 10:40 | MRI ---
Date of service: 11/29/2017 PROCEDURE: MR LUMBAR SPINE WITHOUT CONTRAST HISTORY: pain COMPARISON: None available. TECHNIQUE: Multiecho multiplanar sequences were performed through the lumbar spine without the use of intravenous contrast. FINDINGS: Normal lumbar lordosis. Vertebral body heights are preserved. Marrow signal unremarkable. Conus medullaris unremarkable at the level of T12 Paraspinal soft tissues are unremarkable. T12-L1: No disc herniation, spinal canal stenosis or neural foraminal narrowing. L1-2: No disc herniation, spinal canal stenosis or neural foraminal narrowing. L2-3: No disc herniation, spinal canal stenosis or neural foraminal narrowing. L3-4: No disc herniation, spinal canal stenosis or neural foraminal narrowing. L4-5: There is severe facet arthropathy with 8 mm of anterior subluxation of L4. There is disc bulging with moderate to severe central stenosis and mild bilateral foraminal stenosis L5-S1: No disc herniation, spinal canal stenosis or neural foraminal narrowing. OTHER FINDINGS: None. IMPRESSION: There is severe facet arthropathy with 8 mm of anterior subluxation of L4. There is disc bulging with moderate to severe central stenosis and mild bilateral foraminal stenosis
[2017-11-29] MEDS: cefTRIAXone 1 gm 1 GM/100 ML BAG IVPB SCH (10:44)
--- NOTE | 2017-11-29 12:16 | MRI ---
Date of service: 11/29/2017 PROCEDURE: MR THORACIC SPINE WITHOUT CONTRAST HISTORY: pain COMPARISON: 06/21/2015 TECHNIQUE: Multiecho multiplanar sequences were performed through the thoracic spine without the use of intravenous contrast. FINDINGS: ALIGNMENT: Normal thoracic spinal alignment. Normal thoracic kyphosis. VERTEBRA: Vertebral body height are preserved. MARROW: Marrow signal unremarkable. PARASPINAL SOFT TISSUES: Unremarkable. CORD: Unremarkable thoracic cord. No volume loss, signal abnormality or syrinx. DISCS: No disc herniation, spinal canal stenosis, or neuroforaminal narrowing. OTHER FINDINGS: None. IMPRESSION: Unremarkable non-contrast enhanced MRI of the thoracic spine
--- NOTE | 2017-11-29 15:45 | PN ---
Copied To: Ramsey Mckeon MD Attending MD: Ramsey Mckeon MD DATE: 11/29/2017 SUBJECTIVE: The patient is in bed, in no acute distress, nontoxic. OBJECTIVE: VITAL SIGNS: On exam, temperature is 97, blood pressure is 117/80, respiratory rate of 20, heart rate of 70. HEENT: Examination is unremarkable. NECK: Supple. LUNGS: Have decreased breath sounds. HEART: Normal S1, S2. ABDOMEN: Soft, nontender. DATA: Laboratory examination reveals a white count of 10,000, hemoglobin of 13, platelets of 238. Chemistries are noted. BUN of 20, creatinine of 1.1 and the urinalysis is noted. Microbiology reveals the Staphylococcus saprophyticus in the urine. The blood cultures, there are no growth. Review of order reveals the patient is on ceftriaxone. The patient is scheduled for MRI of the spine. Dr. العلي's note from yesterday is reviewed. The patient had a thoracic spine MRI, the results are not available and the patient did have a lumbar spine MRI. There is a severe facet arthropathy at 8 mm of anterior subluxation of L4 and there is disk bulging, [id number] central stenosis, bilateral foramen stenosis. ASSESSMENT AND PLAN: This is an 82-year-old female with hypertension; history of rectal bleeding; had colonoscopy, found to have to tubular adenoma by pathology; also, had upper endoscopy in the past with Helicobacter pylori associated chronic active gastritis, also with coronary artery disease, pancreatitis and depression. The patient is admitted with: 1. Right pyelonephritis. So far, the blood cultures are negative and the urine culture revealed the patient had staphylococcus saprophyticus, generally associated with young sexually active women urinary tract infection. However, it is laguerre-colored urinary tract infection, is sensitive to Cipro, sensitive to Levaquin and resistant to oxacillin and blood cultures are reported to be negative. Review of the patient's EKG from 2017 reveals a QTc of 483. She is also sensitive to tetracycline and vancomycin. The patient send to home with Neurontin, Lopressor and Lasix. CAT scan of the abdomen and pelvis, has left adrenal mass, no acute intra-abdominal findings and that was with p.o. and IV contrast. We will discontinue ceftriaxone use and Zyvox, would use 7 to 10 days Zyvox. Ramsey Mckeon MD [facility] # [id number]
[2017-11-29 16:50] VITALS: RESP 20
--- NOTE | 2017-11-29 22:20 | PN ---
Copied To: Honey العلي MD Attending MD: Honey العلي MD DATE: 11/29/2017 SUBJECTIVE: The patient is an 82-year-old female. The patient was seen and examined at the bedside. Looking comfortable. Pain is better. Just came back for scans of her back. No fever, no chills. No nausea, vomiting, or diarrhea. No hematuria or hematochezia. No swelling of the legs. No headache. No dizziness. PHYSICAL EXAMINATION: VITAL SIGNS: Temperature 97.2, blood pressure 117/80, respiratory rate 20, heart rate 70. HEENT: Head normocephalic, atraumatic. Eyes: PERRLA. Extraocular muscles are intact. Conjunctivae clear. Nose patent. Mucous membranes moist. NECK: Supple. No carotid bruit, JVD, or thyromegaly. CHEST: Bilaterally symmetrical. HEART: S1 and S2 positive. LUNGS: Clear to auscultation. ABDOMEN: Soft. Bowel sounds present. No organomegaly. EXTREMITIES: No edema. No cyanosis. NEUROLOGIC: The patient is awake and alert. Moving all 4 extremities. No focal deficits. MEDICATIONS: Ecotrin, Lasix, Lopressor, Neurontin, Norvasc, Pepcid, Tylenol, and Zyvox. LABORATORY DATA: White blood cells 8.8, hemoglobin 12, hematocrit 36.6, platelets 233. ESR 67. C-reactive protein is 32.3. ASSESSMENT AND PLAN: Ms. Corinne Negro is an 82-year-old female who looks like has systemic inflammatory response syndrome, abnormal liver function test. C-reactive protein is very high. Seen by Dr. Mckeon, Infectious Disease. History of coronary artery disease, open-heart surgery; hypertension; hypercholesterolemia; degenerative joint disease; history of rectal bleeding in the past, had colonoscopy, has tubular adenoma by pathology, had upper endoscopy shows Helicobacter pylori positive, chronic on active gastritis; also coronary artery disease; pancreatitis; and depression. The patient is admitted with right pyelonephritis. So far, the blood cultures are negatively and urine cultures revealed the patient has Staphylococcus saprophyticus, generally associated with young sexually active women; urinary tract infection; however, it is not colored urinary tract infection, is sensitive to Cipro, sensitive to Levaquin, and resistant to oxacillin. Blood cultures are reported to be negative. The patient is sensitive to tetracycline and vancomycin. The patient home meds ,Lasix and Lopressor, we will continue that. MRI of the back done. I reviewed thoracic MRI and lumbar spine MRI. Thoracic is within normal limits. Lumbar spine showed facet arthropathy with 8 mm anterior subluxation of L4. There is disk bulging with [id number] central stenosis and mild bilateral foraminal stenosis. Pain is a little bit better. We will call neurosurgery consult. Gastric and deep venous thrombosis prophylaxes. Antibiotics as per Infectious Disease. We will follow up. Honey العلي MD MTDD
[2017-11-30] MEDS ORDERED: HYDROmorphone 0.5 mg/0.5 ml ISec IVP PRN (06:56)
--- NOTE | 2017-11-30 08:31 | CP.PCM.PN ---
<Rosalva Smallwood - Last Filed: 11/30/17 08:32> Subjective - Date & Time of Evaluation Date of Evaluation: 11/30/17 Time of Evaluation: 08:00 - Subjective Subjective: GI Fellow PGY5 Progress Note Pt seen and evaluated at bedside, pt with no complaints, reports abdominal pain is resolved. ROS: A 12pt ROS was negative except as above Objective - Vital Signs/Intake and Output Vital Signs (last 24 hours): Temp Pulse Resp BP Pulse Ox 99.2 F 74 20 110/68 97 11/29/17 16:50 11/29/17 16:50 11/29/17 16:50 11/29/17 16:50 11/29/17 16:50 - Medications Medications: Current Medications Amlodipine Besylate (Norvasc) 10 mg PO DAILY [facility] Last Admin: 11/29/17 10:43 Dose: 10 mg Aspirin (Ecotrin) 81 mg PO DAILY [facility] Last Admin: 11/29/17 10:39 Dose: 81 mg Famotidine (Pepcid) 20 mg PO DAILY [facility] Last Admin: 11/29/17 10:44 Dose: 20 mg Furosemide (Lasix) 20 mg PO DAILY [facility] Last Admin: 11/29/17 10:40 Dose: 20 mg Gabapentin (Neurontin) 600 mg PO TID [facility] PRN Reason: Protocol Last Admin: 11/29/17 17:29 Dose: 600 mg Hydromorphone HCl (Dilaudid) 0.25 mg IVP Q6H PRN PRN Reason: Pain, Mild (1-3) Lidocaine (Lidoderm) 1 ea TOP DAILY [facility] Linezolid (Zyvox) 600 mg PO BID [facility] PRN Reason: Protocol Stop: 12/09/17 11:46 Last Admin: 11/29/17 17:30 Dose: 600 mg Metoprolol Tartrate (Lopressor) 25 mg PO BID [facility] Last Admin: 11/29/17 17:29 Dose: 25 mg - Labs Labs: 11/28/17 06:30 11/28/17 06:30 PT 11.5 SECONDS (9.4-12.5) 11/27/17 13:00 INR 1.01 11/27/17 13:00 - Constitutional Appears: Non-toxic, No Acute Distress - Head Exam Head Exam: ATRAUMATIC, NORMAL INSPECTION, NORMOCEPHALIC - Eye Exam Eye Exam: EOMI, Normal appearance, PERRL Pupil Exam: PERRL - ENT Exam ENT Exam: Mucous Membranes Moist, Normal Exam - Neck Exam Neck Exam: Full ROM, Normal Inspection - Respiratory Exam Respiratory Exam: Clear to Ausculation Bilateral, NORMAL BREATHING PATTERN - Cardiovascular Exam Cardiovascular Exam: REGULAR RHYTHM, RRR, +S1, +S2 - GI/Abdominal Exam GI & Abdominal Exam: Soft, Normal Bowel Sounds. absent: Distended, Guarding, Tenderness - Rectal Exam Rectal Exam: Deferred - Extremities Exam Extremities Exam: Full ROM, Normal Inspection - Back Exam Back Exam: NORMAL INSPECTION - Neurological Exam Neurological Exam: Alert, Awake, Oriented x3 - Psychiatric Exam Psychiatric exam: Normal Affect, Normal Mood - Skin Skin Exam: Dry, Intact, Normal Color, Warm Assessment and Plan - Assessment and Plan (Free Text) Assessment: Patient is an 82yo female with PMHx significant for CAD s/P PCI, HTN who presented to the hospital with severe intractable back pain for the last two days 1. Acute back pain 2. 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 PUD 4. Dilated CBD s/p cholecystectomy and prior EUS performed Plan: -Continue supportive care and pain control -Pt clinically improved with no abdominal pain, back pain is better -EUS report reviewed no further work up required presently -Given h/o PUD and squamous papilloma, patient would benefit from repeat EGD to f/u on ulcer healing, timing to be determined -Miralax 17g PO QD-BID PRN for constipation -Encouraged to augment fiber/water in diet -Given prior history of colon polyps, could consider outpatient surveillance colonoscopy -Will continue to follow closely <Rush Loomis V - Last Filed: 11/30/17 19:38> Objective - Vital Signs/Intake and Output Vital Signs (last 24 hours): Temp Pulse Resp BP Pulse Ox 97.9 F 65 20 97/66 L 95 11/30/17 08:55 11/30/17 08:55 11/30/17 08:55 11/30/17 10:38 11/30/17 08:55 - Labs Labs: PT 11.5 SECONDS (9.4-12.5) 11/27/17 13:00 INR 1.01 11/27/17 13:00 Attending/Attestation - Attestation I have personally seen and examined this patient.: Yes I have fully participated in the care of the patient.: Yes I have reviewed all pertinent clinical information, including history, physical exam and plan: Yes Notes (Text): This is an addendum to GI progress report dictated by the GI Fellow.The patient was seen and examined earlier. Medical records, lab studies, imagings were reviewed. Last 24 hours events reviewed. Agreed with the above treatment plan as outlined in GI Fellow 's notes with the addition of the following Discussed with The patient would need a repeat endoscopy to evaluate gastric ulcer and also squamous papilloma Would schedule the patient for outpatient EGD 11/30/17 19:38
[2017-11-30 08:56] VITALS: BP 97/66; PULSE 65; TEMP 97.9; O2SAT 95
[2017-11-30] MEDS ORDERED: Lidocaine 5% Patch TOP SCH (10:00)
--- NOTE | 2017-11-30 12:17 | CON ---
Copied To: Bridger Hanley MD Attending MD: Bridger Hanley MD DATE: 11/30/2017 REASON FOR CONSULTATION: Low back pain. HISTORY OF PRESENT ILLNESS: The patient is an 82-year-old young lady, who states that 5 days ago, she noted the onset of severe lower back pain, which radiated up her back towards her neck. Denies any fevers or chills. She states that prior to this, she has no significant complaints of back pain. No limitations with her ambulation. She cleans her house and does her shopping and walking without any difficulties. No disturbance of bowel or bladder control. She was admitted to the hospital on 11/27/2017. She states her pain is markedly better now and she has no real complaints of back pain at this time. PAST MEDICAL HISTORY: Significant for hypertension. She has a history of coronary artery disease with stenting. She had a cyst removed from the left breast. She had some open heart surgery in [facility] 3 years ago for a valvular lesion. PAST SURGICAL HISTORY: Significant for the open heart surgery as well as the cholecystectomy and as I mentioned, the left breast cystectomy. MEDICATIONS: As listed on the chart. ALLERGIES: SHE IS ALLERGIC TO IV CONTRAST REPORTEDLY. PHYSICAL EXAMINATION: NEUROLOGIC: She has no real tenderness to palpation across the lumbar spine. She has no straight leg raising noted. She moves both extremities actively. Sensory is intact to light touch throughout. She has excellent motor strength. No clonus or Babinski's noted. LABORATORY DATA: MRI was reviewed and it shows a grade I-II spondylolisthesis to the L4 and L5 with resultant severe spinal stenosis. No other vertebral body or thecal sac abnormalities. Everything else really looks fine. Her lab results did show a Staph saprophyticus infection in her urine. ASSESSMENT: She is being followed by Dr. Mckeon for a right pyelonephritis. She has been on antibiotics and perhaps the pain across her back was secondary to the kidney issue. However, again, she has no complaints at this time stating she is markedly better. Impression is that of a grade I-II spondylolisthesis at L4 and L5 with severe spinal stenosis. At this point, the patient is pretty much completely asymptomatic. I left her my card and explained if she were to get recurrent attacks of back pain and/or noticed limitations in her ability to ambulate, we should follow up with her in our [place] office and consider conservatively an epidural block or so. If it became severe, consider a one-level fusion with laminectomy in order to alleviate the pressure on her thecal sac. However, at this time, if she does not want anything done, if she is asymptomatic, therefore I would concur with her and left her my card. Thank you for allowing me to participate in the care of your patient. Bridger Hanley MD
--- NOTE | 2017-11-30 15:07 | CP.PCM.PN ---
Subjective - Date & Time of Evaluation Date of Evaluation: 11/30/17 Time of Evaluation: 11:45 - Subjective Subjective: No fevers, no more dysuria, no flank pain, no nausea. Objective - Vital Signs/Intake and Output Vital Signs (last 24 hours): Temp Pulse Resp BP Pulse Ox 97.9 F 65 20 97/66 L 95 11/30/17 08:55 11/30/17 08:55 11/30/17 08:55 11/30/17 10:38 11/30/17 08:55 - Medications Medications: Current Medications Amlodipine Besylate (Norvasc) 10 mg PO DAILY [facility] Last Admin: 11/30/17 10:38 Dose: Not Given Aspirin (Ecotrin) 81 mg PO DAILY [facility] Last Admin: 11/30/17 10:35 Dose: 81 mg Famotidine (Pepcid) 20 mg PO DAILY [facility] Last Admin: 11/30/17 10:38 Dose: 20 mg Furosemide (Lasix) 20 mg PO DAILY [facility] Last Admin: 11/30/17 10:36 Dose: Not Given Gabapentin (Neurontin) 600 mg PO TID [facility] PRN Reason: Protocol Last Admin: 11/30/17 13:50 Dose: 600 mg Hydromorphone HCl (Dilaudid) 0.25 mg IVP Q6H PRN PRN Reason: Pain, Mild (1-3) Lidocaine (Lidoderm) 1 ea TOP DAILY [facility] Last Admin: 11/30/17 10:37 Dose: 1 ea Linezolid (Zyvox) 600 mg PO BID [facility] PRN Reason: Protocol Stop: 12/09/17 11:46 Last Admin: 11/30/17 10:38 Dose: 600 mg Metoprolol Tartrate (Lopressor) 25 mg PO BID [facility] Last Admin: 11/30/17 10:37 Dose: Not Given - Labs Labs: 11/28/17 06:30 11/28/17 06:30 PT 11.5 SECONDS (9.4-12.5) 11/27/17 13:00 INR 1.01 11/27/17 13:00 - Constitutional Appears: Non-toxic, Chronically Ill - Head Exam Head Exam: NORMAL INSPECTION - Neck Exam Neck Exam: absent: Meningismus - Respiratory Exam Respiratory Exam: Decreased Breath Sounds - Cardiovascular Exam Cardiovascular Exam: +S1, +S2 - GI/Abdominal Exam GI & Abdominal Exam: Soft. absent: Tenderness Assessment and Plan - Assessment and Plan (Free Text) Plan: Assessment Right sided pyelonephritis with Staph saprophyticus growing in urine cx HTN CAD history of pancreatitis tubular adenoma in the colon history of H. pylori infection with chronic active gastritis depression Plan Continue Zyvox to complete 7-10 days of therapy with outpatient follow up with PMD
== END 2017-11-30 15:46 | disposition home or self-care (01) | DRG 690 ==
LOC: ED 11:47 → ERH 16:50 → 3RSO 20:16 → OBSVTOIN 11-28 22:23
PROVIDERS: ADMIT Internal Medicine; ATTEND Internal Medicine
DX: N12 Tubulo-interstitial nephritis, not specified as acute or chronic (principal); B95.7 Other staphylococcus as the cause of diseases classified elsewhere; M43.16 Spondylolisthesis, lumbar region; M48.061 Spinal stenosis, lumbar region without neurogenic claudication; I25.10 Atherosclerotic heart disease of native coronary artery without angina pectoris; I10 Essential (primary) hypertension; K59.00 Constipation, unspecified; K29.50 Unspecified chronic gastritis without bleeding; F32.9 Major depressive disorder, single episode, unspecified; E78.00 Pure hypercholesterolemia, unspecified; Z87.01 Personal history of pneumonia (recurrent); Z90.49 Acquired absence of other specified parts of digestive tract; Z86.19 Personal history of other infectious and parasitic diseases; Z95.1 Presence of aortocoronary bypass graft; Z95.5 Presence of coronary angioplasty implant and graft

== ENCOUNTER 2018-06-24 15:22 | Outpatient (CLI) | payer MEDICARE | END 2018-06-24 15:23 | disposition home or self-care (01) | LOC: RAD 15:23 | DX: M25.562 Pain in left knee (principal) ==

== ENCOUNTER 2018-09-01 09:23 | Outpatient (CLI) | payer MEDICARE | END 2018-09-01 09:24 | disposition home or self-care (01) | LOC: RAD 09:23 ==